=== PATIENT | male | born 1975 | race Caucasian/White ===

== ENCOUNTER 2025-02-14 15:31 | Inpatient (IN) | payer MEDICAID, OTHER ==
[2025-02-14] MEDS ORDERED: LORazepam 1 MG TAB PO PRN (17:12)
[2025-02-14] MEDS ORDERED: MAG HYDROX/AL HYDROX/SIMETH 355 ML BOTTLE PO PRN (17:12)
[2025-02-14] MEDS ORDERED: haloperidoL 5 MG TAB PO PRN (17:12)
[2025-02-14] MEDS ORDERED: MAGNESIUM HYDROXIDE 2,400 MG/30 ML CUP PO PRN (17:12)
[2025-02-14] MEDS ORDERED: HALOPERIDOL LACTATE 5 MG/ML 1 ML VIAL IM PRN (17:12)
[2025-02-14] MEDS ORDERED: LORazepam 2 MG/ML INJ IM PRN (17:12)
[2025-02-14] MEDS ORDERED: QUEtiapine 50 MG TAB PO PRN (17:14)
[2025-02-14 20:05] LABS: Glucose,Whole Blood 113 mg/dL (70-110)
--- NOTE | 2025-02-14 22:56 | P.CONS ---
History of Present Illness - Reason for Consult Consult date: 02/14/25 - History of Present Illness Patient is a 49-year-old male being seen for depression. Patient refused to be seen at this moment. Will attempt to see patient tomorrow. Elizabeth Rivera MD PGY-1 IM Dictation was produced using [employer] dictation software. please excuse any grammatical, word or spelling errors. patient refused evaluation , please reach out if patient has any medical concerns in the future Past Medical History Past Medical History: Diabetes Mellitus, Hyperlipidemia, Hypertension History of Any Multi-Drug Resistant Organisms: None Reported Past Surgical History: No Surgical Hx Reported Past Anesthesia/Blood Transfusion Reactions: No Reported Reaction Past Psychological History: Depression Smoking Status: Current every day smoker Past Alcohol Use History: Abuse, Daily Past Drug Use History: None Reported - Past Family History Father Family Medical History: No Reported History Medications and Allergies Home Medications Medication Instructions Recorded Confirmed Type Albuterol Sulfate [Proair 02/14/25 History Digihaler] Atorvastatin [Lipitor] 20 mg PO DAILY 02/14/25 02/14/25 History Fenofibrate Nanocrystallized 48 mg PO 02/14/25 History [Fenofibrate] Leflunomide [Arava] 20 mg PO DAILY 02/14/25 02/14/25 History Losartan [Cozaar] 25 mg PO DAILY 02/14/25 02/14/25 History Pantoprazole Sodium [Protonix] 20 tab PO DAILY 02/14/25 02/14/25 History Pregabalin [Lyrica] 75 mg PO TID 02/14/25 History busPIRone HCl [Buspar] 5 mg PO TID 02/14/25 02/14/25 History glipiZIDE 10 mg PO DAILY 02/14/25 02/14/25 History metFORMIN HCL 1,000 mg PO BID 02/14/25 02/14/25 History Allergies Allergy/AdvReac Type Severity Reaction Status Date / Time No Known Allergies Allergy Verified 02/14/25 17:11 Physical Exam Vitals: Vital Signs Temp Pulse Resp BP Pulse Ox 02/14/25 20:17 98 F 83 18 144/84 97 Intake and Output 02/14/25 02/14/25 02/14/25 06:59 14:59 22:59 Other: Weight 87.146 kg Results Labs: Abnormal Lab Results - Last 24 Hours (Table) 02/14/25 Range/Units 20:04 POC Glucose (mg/dL) 113 H (70-110) mg/dL
[2025-02-15 07:39] LABS: Glucose,Whole Blood 116 mg/dL (70-110)
[2025-02-15] MEDS: FOLIC ACID 1 MG TAB PO SCH (09:20)
[2025-02-15] MEDS: MULTIVITAMINS, THERA 1 EACH TAB PO SCH (09:20)
[2025-02-15] MEDS: THIAMINE 100 MG TAB PO SCH (09:20)
[2025-02-15] MEDS: NICOTINE 14MG/24HR PATCH TRANSDERM SCH (09:20)
[2025-02-15] MEDS: IBUPROFEN 600 MG TAB PO PRN (11:00)
--- NOTE | 2025-02-15 12:07 | XR ---
EXAMINATION TYPE: XR foot complete RT DATE OF EXAM: 02/15/2025 11:55 AM COMPARISON: None CLINICAL INDICATION: Male, 49 years old with history of R foot edema and pain; PHH, pain TECHNIQUE: XR foot complete RT examined in the AP, oblique, and lateral projections. FINDINGS: Soft tissue swelling present most pronounced along the dorsal aspect. No evidence of any acute osseou s pathology. Multifocal degeneration changes throughout the joints of the foot with osteophyte format ion and joint space narrowing. IMPRESSION: 1. Mild edema, No evidence of acute fracture. 2. Multifocal degeneration changes throughout the joints of the foot. [facility], , 02/15/2025 12:04 PM
[2025-02-15 12:09] LABS: Basophils # (A) 0.1 k/uL (0-0.2); Basophils % (A) 1 %; Eosinophils # (A) 0.1 k/uL (0-0.7); Eosinophils % (A) 1 %; HCT 49.4 % (39.0-53.0); HGB 15.9 gm/dL (13.0-17.5); Lymphocytes # (A) 1.9 k/uL (1.0-4.8); Lymphocytes % (A) 20 %; MCH 31.5 pg (25.0-35.0); MCHC 32.1 g/dL (31.0-37.0); Macrocytosis Slight; Mean Platelet Volume 7.7; Monocytes # (A) 0.4 k/uL (0-1.0); Monocytes % (A) 4 %; Neutrophils # (A) 7.1 k/uL (1.3-7.7); Neutrophils % (A) 74 %; Platelet Count 200 k/uL (150-450); RBC 5.04 m/uL (4.30-5.90); RDW 14.9 % (11.5-15.5); WBC 9.7 k/uL (3.8-10.6)
[2025-02-15 12:47] LABS: ALT 28 U/L (4-49); AST 31 U/L (17-59); African American GFR (CKD) 87 (>60 ml/min/1.73 sqM); Alkaline Phosphatase 90 U/L (38-126); Anion Gap 7 mmol/L; Blood Urea Nitrogen 15 mg/dL (9-20); Calcium 9.8 mg/dL (8.4-10.2); Carbon Dioxide 29 mmol/L (22-30); Chloride 99 mmol/L (98-107); Glucose 129 mg/dL (74-99); Non-African American GFR(CKD) 75 (>60 ml/min/1.73 sqM); Potassium 3.6 mmol/L (3.5-5.1); Sodium 135 mmol/L (137-145); Total Bilirubin 0.9 mg/dL (0.2-1.3); Total Protein 6.9 g/dL (6.3-8.2)
[2025-02-15 13:01] LABS: Glucose,Whole Blood 112 mg/dL (70-110)
[2025-02-15] MEDS: SERTRALINE 25 MG TAB PO STA (14:53)
[2025-02-15] MEDS: ACETAMINOPHEN TAB 325 MG TAB PO PRN (14:54)
--- NOTE | 2025-02-15 14:58 | P.HP ---
Psychiatric H&P - . H&P Date: 02/15/25 History & Physical: Allergies Allergy/AdvReac Type Severity Reaction Status Date / Time No Known Allergies Allergy Verified 02/14/25 17:11 Vital Signs Temp 96.8 F L 02/15/25 09:00 Pulse 91 02/15/25 09:00 Resp 18 02/14/25 20:17 BP 131/90 02/15/25 09:00 Pulse Ox 98 02/15/25 09:00 FiO2 Intake & Output 02/14/25 02/15/25 02/15/25 18:59 06:59 18:59 Weight 81 kg 87.146 kg Laboratory Last Values WBC 9.7 k/uL (3.8-10.6) 02/15/25 11:12 RBC 5.04 m/uL (4.30-5.90) 02/15/25 11:12 Hgb 15.9 gm/dL (13.0-17.5) 02/15/25 11:12 Hct 49.4 % (39.0-53.0) 02/15/25 11:12 MCV 98.0 fL (80.0-100.0) 02/15/25 11:12 MCH 31.5 pg (25.0-35.0) 02/15/25 11:12 MCHC 32.1 g/dL (31.0-37.0) 02/15/25 11:12 RDW 14.9 % (11.5-15.5) 02/15/25 11:12 Plt Count 200 k/uL (150-450) 02/15/25 11:12 MPV 7.7 02/15/25 11:12 Neutrophils % 74 % 02/15/25 11:12 Lymphocytes % 20 % 02/15/25 11:12 Monocytes % 4 % 02/15/25 11:12 Eosinophils % 1 % 02/15/25 11:12 Basophils % 1 % 02/15/25 11:12 Neutrophils # 7.1 k/uL (1.3-7.7) 02/15/25 11:12 Lymphocytes # 1.9 k/uL (1.0-4.8) 02/15/25 11:12 Monocytes # 0.4 k/uL (0-1.0) 02/15/25 11:12 Eosinophils # 0.1 k/uL (0-0.7) 02/15/25 11:12 Basophils # 0.1 k/uL (0-0.2) 02/15/25 11:12 Macrocytosis Slight 02/15/25 11:12 Sodium 135 mmol/L (137-145) L 02/15/25 11:12 Potassium 3.6 mmol/L (3.5-5.1) 02/15/25 11:12 Chloride 99 mmol/L (98-107) 02/15/25 11:12 Carbon Dioxide 29 mmol/L (22-30) 02/15/25 11:12 Anion Gap 7 mmol/L 02/15/25 11:12 BUN 15 mg/dL (9-20) 02/15/25 11:12 Creatinine 1.13 mg/dL (0.66-1.25) 02/15/25 11:12 Est GFR (CKD-EPI)AfAm 87 (>60 ml/min/1.73 sqM) 02/15/25 11:12 Est GFR (CKD-EPI)NonAf 75 (>60 ml/min/1.73 sqM) 02/15/25 11:12 Glucose 129 mg/dL (74-99) H 02/15/25 11:12 POC Glucose (mg/dL) 112 mg/dL (70-110) H 02/15/25 13:00 POC Glu Land Lease Information Clerk ID Ha Shirley 02/15/25 13:00 Calcium 9.8 mg/dL (8.4-10.2) 02/15/25 11:12 Total Bilirubin 0.9 mg/dL (0.2-1.3) 02/15/25 11:12 AST 31 U/L (17-59) 02/15/25 11:12 ALT 28 U/L (4-49) 02/15/25 11:12 Alkaline Phosphatase 90 U/L (38-126) 02/15/25 11:12 Total Protein 6.9 g/dL (6.3-8.2) 02/15/25 11:12 Albumin 4.0 g/dL (3.5-5.0) 02/15/25 11:12 02/15/25 14:40 IDENTIFYING DATA: Patient is a 49-year-old male, currently homeless, he is he has 1 daughter, no income HPI: Patient presented to the hospital as a transfer from [facility]. According to EPS note "pt is transfer from [facility]. pt reportedly arrived to ER intoxicated and reported SI. pt's uncle had passed recently and pt became homeless. pt reports feelings of helplessness and hopelessness and minimal to no supports. pt has not been compliant with medications." Patient was seen today agreeable to speak to video games storywriter in the office. Patient was fairly constricted in his affect, appeared to be depressed, very poor eye contact appear to be di sheveled. States that he has been struggling with homelessness, claims that he is tired of the cold feeling "dirty" and always being outside. He states that he is been homeless for about 2 years now. Claims that he is to be able to stay with his uncle on and off however his uncle and he is unable to do that anymore. States that he has been feeling more depressed lately having suicidal thoughts of wanting to hang himself, however now is only having suicidal thoughts no specific plan. Claims that he is still having those thoughts at this time, admits to having anxiety as well. Denies any homicidal ideations. Claims that his sleep has been poor appetite has been fair. At this time patient denies any auditory or visual hallucinations. Patient denies any flight of ideas racing thoughts and increased in goal directed behavior. Patient admits to using alcohol drinking daily, claims that he has only been drinking for the past couple of weeks. States that his last drink was about 4 days ago denies any history of withdrawal symptoms or seizures or delirium tremens. Also claims that he smokes cigarettes denies any other recreational drug use. PAST PSYCHIATRIC HISTORY: Patient has a history of depression anxiety. Patient denies being on any psychiatric medications. He claims that he was previously admitted to [facility] several years ago. Patient denies any psychiatric outpatient follow-up. Claims that he did have a overdose suicide attempt and also attempted to hang himself years ago. PMH: as per ER note ALLERGIES: as per EMR CHEMICAL DEPENDENCY HISTORY: as per HPI FAMILY PSYCHIATRIC/SUBSTANCE USE HISTORY: Denies SOCIAL HISTORY: Patient was born and raised in [place]. Claims that currently he resides in [place] in [facility]. States that he completed high school, claims that he did go to custodial about 3 years ago for a DUI. Claims that he is he has 1 daughter he is currently homeless he has no income. MENTAL STATUS EXAM: General Appearance: Patient appears to be tall, disheveled hair, poor eye contact stated age is alert, directable, and attempts to cooperate. Patient appears to have poor hygiene and grooming. Behavior: Patient is seated without any agitated behavior. Poor eye contact, fairly withdrawn Speech: Patient's speech is fluent and nonpressured. Soft tone, monotone Mood/Affect: Patient reports their mood is depressed chest, affect is congruent and constricted. Suicidality/Homicidality: Patient denies having any homicidal ideation intent or plan. Admitting to suicidal thoughts, no specific plan at this time Perceptions: Patient denies any visual hallucinations and denies any auditory hallucinations Though content/process: There is no evidence of any delusional thought content and thought process is linear and goal-directed. Fairly concrete Memory and concentration: AOX3, grossly intact for the purposes of this session. Can spell "WORLD" backwards Judgment and insight: Poor STRENGTHS/WEAKNESSES: strength is that patient is resilient. Weakness is that patient has poor judgment and is impulsive and is currently homeless INTELLECT: Average IMPRESSIONS: Suicidal ideations Depressive disorder unspecified Alcohol use disorder Nicotine dependence Homelessness PLAN: -Patient is admitted under voluntary status to MHU for stabilization of psychiatric symptoms and safety. Patient has signed adult voluntary form and has signed medication consent and is placed in patient's chart. -Medications : Zoloft 25 mg daily for mood/anxiety, plan to increase tomorrow to 50 mg. Seroquel 50 mg nightly for mood stabilization/sleep -Ativan and Haldol PRN for agitation/aggression -Started thiamine, MVM for etoh use -[facility] protocol with Ativan PRN for ETOH withdrawal. -Patient was counselled on substance abuse and desired to cut back on use. Will offer patient subtance use rehab -Patient was informed of the risks, benefits and side effects of the medications and patient verbally consented to taking the medications. Patient signed med consent form and was placed in chart. Patient was offered medication information and declined it -Internal Medicine consult to perform medical evaluation and physical. -NRT -nicotine patch -SW on board for discharge planning. Encourage patient to participate in groups to work on coping skills.
[2025-02-15 16:21] LABS: Chol/HDL Ratio 3.25 Ratio; HDL Cholesterol 55.7 mg/dL (40.00-60.00)
[2025-02-15] MEDS: predniSONE 20 MG TAB PO SCH (17:19)
[2025-02-15 17:52] LABS: Glucose,Whole Blood 135 mg/dL (70-110)
[2025-02-15 19:38] LABS: Glucose,Whole Blood 187 mg/dL (70-110)
[2025-02-15] MEDS: QUEtiapine 50 MG TAB PO SCH (20:46)
[2025-02-15] MEDS: LORazepam 1 MG TAB PO PRN (20:48)
[2025-02-16 07:59] LABS: Glucose,Whole Blood 188 mg/dL (70-110)
[2025-02-16] MEDS: SERTRALINE 50 MG TAB PO SCH (08:50)
--- NOTE | 2025-02-16 11:22 | P.PN ---
Progress Note - Text Progress Note Date: 02/16/25 Interval history: Patient was seen today laying in bed. Claims that he is not feeling well today, claims that his stomach is hurting a bit, was reporting chronic pain in his legs. States that he did not sleep much last night. Believes that he is not tolerating the Zoloft pretty well. Was agreeable to take Cymbalta instead. Claims that he is still having anxiety, endorsing depression. Continues to state that he is having suicidal thoughts however no specific plan. Denies any homicidal ideations denies any auditory or visual hallucinations. Continues to endorse hopelessness. Claims that he tried to eat a little bit this morning. MENTAL STATUS EXAM: General Appearance: Patient appears to be tall, disheveled hair, poor eye contact stated age is alert, directable, and attempts to cooperate. Patient appears to have poor hygiene and grooming. Behavior: Patient is laying in bed without any agitated behavior. Poor eye contact, fairly withdrawn Speech: Patient's speech is fluent and nonpressured. Soft tone, monotone Mood/Affect: Patient reports their mood is depressed, affect is congruent and constricted. Suicidality/Homicidality: Patient denies having any homicidal ideation intent or plan. Admitting to suicidal thoughts, no specific plan at this time Perceptions: Patient denies any visual hallucinations and denies any auditory hallucinations Though content/process: There is no evidence of any delusional thought content. fairly concrete. Somatically preoccupied Memory and concentration: AOX3, grossly intact for the purposes of this session Judgment and insight: Poor IMPRESSIONS: Suicidal ideations Depressive disorder unspecified Alcohol use disorder Nicotine dependence Homelessness PLAN: -Patient is admitted under voluntary status to MHU for stabilization of psychiatric symptoms and safety. Patient has signed adult voluntary form and has signed medication consent and is placed in patient's chart. -Medications : discontinue Zoloft and replace with Cymbalta 30 mg daily for mood/anxiety, increase Seroquel 75 mg nightly for mood stabilization/sleep -Ativan and Haldol PRN for agitation/aggression -thiamine, MVM for etoh use -[facility] protocol with Ativan PRN for ETOH withdrawal. Librium scheduled with taper, last dose tomorrow afternoon. -NRT -nicotine patch -SW on board for discharge planning. Encourage patient to participate in groups to work on coping skills. Will attempt to offer patient rehab when he is more stable and improving.
[2025-02-16 12:33] LABS: Glucose,Whole Blood 216 mg/dL (70-110)
[2025-02-16 17:41] LABS: Glucose,Whole Blood 313 mg/dL (70-110)
[2025-02-16] MEDS ORDERED: DEXTROSE 50% SYRINGE 50 ML IVP PRN ×2 (18:00)
[2025-02-16] MEDS: INSULIN LISPRO (HumaLOG) 100 UNIT/ML 10 mL VL SQ SCH (18:18)
[2025-02-16 20:06] LABS: Glucose,Whole Blood 307 mg/dL (70-110)
[2025-02-16] MEDS ORDERED: INSULIN LISPRO (HumaLOG) 100 UNIT/ML 10 mL VL SQ SCH (21:00)
[2025-02-16] MEDS: QUEtiapine 25 MG TAB PO SCH (22:16)
[2025-02-16] MEDS: LORazepam 1 MG TAB PO PRN (22:21)
[2025-02-17 07:54] LABS: Glucose,Whole Blood 137 mg/dL (70-110)
[2025-02-17] MEDS: DULoxetine HCL 30 MG CAPSULE.DR PO SCH ×2 (09:13→22:08)
--- NOTE | 2025-02-17 09:51 | P.PN ---
Progress Note - Text Progress Note Date: 02/17/25 Interval history: Patient was seen today laying in bed. Patient was agreeable to speak to publications writer in the office today. Claims that he continues to feel depressed, poor eye contact disheveled appearance. Mainly keeping himself in his room. Claims that he slept better last night however did take an Ativan last night. He is claiming that he is not having much withdrawal symptoms at this time Librium with discontinued today. Continues to have chronic pain in his legs. Has been tolerating medications fairly well no side effects. Has been eating fairly. Continues to endorse severe depression hopelessness. Claims that he is still having anxiety. Continues to state that he is having suicidal thoughts however no specific plan. Denies any homicidal ideations denies any auditory or visual hallucinations. MENTAL STATUS EXAM: General Appearance: Patient appears to be tall, disheveled hair, poor eye contact stated age is alert, directable, and attempts to cooperate. Patient appears to have poor hygiene and grooming. Behavior: Patient is laying in bed without any agitated behavior. Poor eye contact, fairly withdrawn Speech: Patient's speech is fluent and nonpressured. Soft tone, monotone Mood/Affect: Patient reports their mood is depressed and anxious, affect is congruent and constricted. Suicidality/Homicidality: Patient denies having any homicidal ideation intent or plan. Admitting to suicidal thoughts, no specific plan at this time Perceptions: Patient denies any visual hallucinations and denies any auditory hallucinations Though content/process: There is no evidence of any delusional thought content. fairly concrete. Memory and concentration: AOX3, grossly intact for the purposes of this session Judgment and insight: Poor IMPRESSIONS: Suicidal ideations Depressive disorder unspecified Alcohol use disorder Nicotine dependence Homelessness PLAN: -Patient is admitted under voluntary status to MHU for stabilization of psychiatric symptoms and safety. Patient has signed adult voluntary form and has signed medication consent and is placed in patient's chart. -Medications : Increase Cymbalta 30 mg bid for mood/anxiety, increase Seroquel 100 mg nightly for mood stabilization/sleep -Ativan and Haldol PRN for agitation/aggression -thiamine, MVM for etoh use -[facility] protocol with Ativan PRN for ETOH withdrawal. Librium scheduled with taper, last dose today. -NRT -nicotine patch -SW on board for discharge planning. Encourage patient to participate in groups to work on coping skills. Will attempt to offer patient rehab when he is more stable and improving.
[2025-02-17 12:34] LABS: Glucose,Whole Blood 192 mg/dL (70-110)
[2025-02-17 17:51] LABS: Glucose,Whole Blood 313 mg/dL (70-110)
[2025-02-17 20:05] LABS: Glucose,Whole Blood 381 mg/dL (70-110)
[2025-02-17] MEDS: QUEtiapine 100 MG TAB PO SCH (22:08)
[2025-02-17] MEDS: INSULIN LISPRO (HumaLOG) 100 UNIT/ML 10 mL VL SQ SCH (23:55)
[2025-02-18 07:40] LABS: Glucose,Whole Blood 183 mg/dL (70-110)
--- NOTE | 2025-02-18 12:12 | P.PN ---
Progress Note - Text Progress Note Date: 02/18/25 Interval history: Patient was seen today sitting in the lounge talking with other patients. Linda licona was agreeable to speak to verse writer today. Claims that he continues to feel depressed, poor eye contact and continues to have disheveled appearance. Patient claims that he is still feeling some anxiety, is claiming that the medications are helping a bit. He continues to be fairly concrete, withdrawn. Poverty of content. Continues to state that he has thoughts of harming himself however is not stating what he would do when released. Claims that he did sleep throughout the night fairly well. Has been eating well. Denies any homicidal ideations denies any auditory or visual hallucinations. MENTAL STATUS EXAM: General Appearance: Patient appears to be tall, disheveled hair, poor eye contact stated age is alert, directable, and attempts to cooperate. Patient appears to have poor hygiene and grooming. Behavior: Patient is laying in bed without any agitated behavior. Poor eye contact, fairly withdrawn, improving mildly Speech: Patient's speech is fluent and nonpressured. Soft tone, monotone Mood/Affect: Patient reports their mood is depressed and anxious, improving mildly, affect is congruent and constricted. Suicidality/Homicidality: Patient denies having any homicidal ideation intent or plan. Admitting to suicidal thoughts, no specific plan at this time Perceptions: Patient denies any visual hallucinations and denies any auditory hallucinations Though content/process: There is no evidence of any delusional thought content. fairly concrete. Memory and concentration: AOX3, grossly intact for the purposes of this session Judgment and insight: Poor IMPRESSIONS: Suicidal ideations Depressive disorder unspecified Alcohol use disorder Nicotine dependence Homelessness PLAN: -Patient is admitted under voluntary status to MHU for stabilization of psychiatric symptoms and safety. Patient has signed adult voluntary form and has signed medication consent and is placed in patient's chart. -Medications : Increase Cymbalta 30 mg hs + 60 mg daily for mood/anxiety, Seroquel 100 mg nightly for mood stabilization/sleep -Ativan and Haldol PRN for agitation/aggression -thiamine, MVM for etoh use -NRT -nicotine patch -SW on board for discharge planning. Encourage patient to participate in groups to work on coping skills. Will attempt to offer patient rehab when he is more stable and improving. hopeful for discharge next week once patient improves psychiatrically.
[2025-02-18 12:48] LABS: Glucose,Whole Blood 200 mg/dL (70-110)
[2025-02-18 17:39] LABS: Glucose,Whole Blood 373 mg/dL (70-110)
[2025-02-18] MEDS: FENOFIBRATE 54 MG TAB PO SCH (18:25)
[2025-02-18] MEDS: LOSARTAN 25 MG TAB PO SCH (18:25)
[2025-02-18] MEDS: glipiZIDE 5 MG TAB PO SCH (18:25)
[2025-02-18] MEDS: metFORMIN 500 MG TAB PO SCH (18:26)
[2025-02-18 19:50] LABS: Glucose,Whole Blood 344 mg/dL (70-110)
[2025-02-18] MEDS: DULoxetine HCL 30 MG CAPSULE.DR PO SCH (20:20)
[2025-02-19 07:58] LABS: Glucose,Whole Blood 104 mg/dL (70-110)
[2025-02-19] MEDS: PANTOPRAZOLE 40 MG TABLET PO SCH (09:48)
[2025-02-19] MEDS: ATORVASTATIN 20 MG TAB PO SCH (09:48)
[2025-02-19] MEDS: DULoxetine HCL 60 MG CAPSULE.DR PO SCH (09:48)
[2025-02-19] MEDS: LEFLUNOMIDE 20 MG TAB PO SCH (09:49)
[2025-02-19 12:56] LABS: Glucose,Whole Blood 138 mg/dL (70-110)
--- NOTE | 2025-02-19 15:40 | P.PN ---
Progress Note - Text Progress Note Date: 02/19/25 Interval history: Patient was seen bedside and was directable and agreeable to speak with parts data writer. He has a downward gaze and states that his mood is "fine ". Patient endorses suicidal ideation with a plan to hang himself and states being in the hospital is what is preventing him from carrying out the plan. He presents with hopelessness and helplessness. He states that he experiences social isolation which makes him feel like "I am nothing ". He reports eating well and states that he likes to lay in bed otherwise. He does not want to engage in groups although encouraged to do so. Discussed behavioral activation. He reports sleeping well. At this time patient denies any homicidal ideations intent or plan. Denies any Auditory or visual hallucinations. Patient denies any side effects from the medications and has been compliant with meds. Mental status exam: General Appearance: Patient appears to be tall, disheveled hair, poor eye contact stated age is alert, directable, and attempts to cooperate. Patient appears to have poor hygiene and grooming. Malodorous Behavior: Patient is laying in bed without any agitated behavior. Poor eye contact, fairly withdrawn, improving mildly Speech: Patient's speech is fluent and nonpressured. Soft tone, monotone Mood/Affect: Patient reports their mood is depressed and anxious, affect is congruent Suicidality/Homicidality: Patient denies having any homicidal ideation intent or plan. Suicidal ideation with a plan Perceptions: Patient denies any visual hallucinations and denies any auditory hallucinations Though content/process: There is no evidence of any delusional thought content. fairly concrete. Memory and concentration: AOX3, grossly intact for the purposes of this session Judgment and insight: Poor Assessment/Plan: Continue with current diagnosis. Patient continues to meet criteria for inpatient psychiatric admission for symptom stabilization and safety.[Patient will be maintained on current psychotropic medication regimen.] Monitor for medication compliance and for any psychotropic medication side effects. Will continue to monitor ongoing response to treatment. Encouraged participation in milieu.
[2025-02-19 17:19] LABS: Glucose,Whole Blood 274 mg/dL (70-110)
[2025-02-19 20:27] LABS: Glucose,Whole Blood 296 mg/dL (70-110)
[2025-02-20 07:37] LABS: Glucose,Whole Blood 128 mg/dL (70-110)
[2025-02-20 12:50] LABS: Glucose,Whole Blood 169 mg/dL (70-110)
--- NOTE | 2025-02-20 15:00 | P.PN ---
Progress Note - Text Progress Note Date: 02/20/25 Interval history: Patient was seen bedside and was directable and agreeable to speak with film writer. He has a downward gaze and states that his mood is "alright". Patient endorses suicidal ideation with a plan to hang himself and states "that's what I plan to be doing when I get out of here ". He presents with hopelessness and helplessness. He continues to state "I am nothing. I got nothing". He reports eating well and states that he likes to lay in bed otherwise. He does not want to engage in groups although encouraged to do so. Discussed behavioral activation. He reports sleeping well. He is agreeable with Cymbalta being increased. At this time patient denies any homicidal ideations intent or plan. Denies any Auditory or visual hallucinations. Patient denies any side effects from the medications and has been compliant with meds. Mental status exam: General Appearance: Patient appears to be tall, disheveled hair, poor eye contact stated age is alert, directable, and attempts to cooperate. Patient appears to have poor hygiene and grooming. Malodorous Behavior: Patient is laying in bed without any agitated behavior. Poor eye contact, fairly withdrawn, improving mildly Speech: Patient's speech is fluent and nonpressured. Soft tone, monotone Mood/Affect: Patient reports their mood is depressed, affect is congruent Suicidality/Homicidality: Patient denies having any homicidal ideation intent or plan. Suicidal ideation with a plan Perceptions: Patient denies any visual hallucinations and denies any auditory hallucinations Though content/process: There is no evidence of any delusional thought content. fairly concrete. Memory and concentration: AOX3, grossly intact for the purposes of this session Judgment and insight: Poor Assessment/Plan: Continue with current diagnosis. Patient continues to meet criteria for inpatient psychiatric admission for symptom stabilization and safety. Increase Cymbalta to 60 mg twice daily. [Patient will be maintained on other psychotropic medication regimen.] Monitor for medication compliance and for any psychotropic medication side effects. Will continue to monitor ongoing response to treatment. Encouraged participation in milieu.
[2025-02-20 17:52] LABS: Glucose,Whole Blood 263 mg/dL (70-110)
[2025-02-20 21:07] LABS: Glucose,Whole Blood 329 mg/dL (70-110)
[2025-02-20] MEDS: DULoxetine HCL 60 MG CAPSULE.DR PO SCH (21:10)
[2025-02-21 07:47] LABS: Glucose,Whole Blood 130 mg/dL (70-110)
--- NOTE | 2025-02-21 11:44 | P.PN ---
Progress Note - Text Progress Note Date: 02/21/25 Interval history: Patient was seen today laying in his bed. Patient was agreeable to speak to tia crabtree today. Patient continues to state that he feels depressed at this time. He has a mild improvement in his hygiene and grooming. Claims that he did go to some groups over the weekend and played [employer]. He states that he continues to have thoughts of harming himself "when I get out". He has no immediate plans to harm himself here in the hospital. Continues to endorse hopelessness, was fa irly vague at times and guarded. Claims that he is eating fairly. Claims that he is not sleeping well at nighttime. Continues to endorse depression and anxiety. Denies any homicidal ideations denies any auditory or visual hallucinations. MENTAL STATUS EXAM: General Appearance: Patient appears to be tall, disheveled hair, poor eye contact stated age is alert, directable, and attempts to cooperate. Patient appears to have mildly improving hygiene and grooming. Behavior: Patient is laying in bed without any agitated behavior. Mildly improving eye contact, fairly withdrawn, improving mildly Speech: Patient's speech is fluent and nonpressured. Soft tone, monotone, mildly improving Mood/Affect: Patient reports their mood is depressed and anxious, improving mildly, affect is congruent and constricted. Suicidality/Homicidality: Patient denies having any homicidal ideation intent or plan. Admitting to suicidal thoughts, no specific plan at this time Perceptions: Patient denies any visual hallucinations and denies any auditory hallucinations Though content/process: There is no evidence of any delusional thought content. fairly concrete. Evasive Memory and concentration: AOX3, grossly intact for the purposes of this session Judgment and insight: Poor IMPRESSIONS: Suicidal ideations Depressive disorder unspecified Alcohol use disorder Nicotine dependence Homelessness PLAN: -Patient is admitted under voluntary status to [facility] for stabilization of psychiatric symptoms and safety. Patient has signed adult voluntary form and has signed medication consent and is placed in patient's chart. -Medications : Cymbalta 60 mg bid for mood/anxiety, increase Seroquel 150 mg nightly for mood stabilization/sleep, start lithium 150 mg daily for mood adjunct/suicidal thoughts -Ativan and Haldol PRN for agitation/aggression -thiamine, MVM for etoh use -NRT -nicotine patch -SW on board for discharge planning. Encourage patient to participate in groups to work on coping skills. Will attempt to offer patient rehab when he is more stable and improving. hopeful for discharge this week if patient is psychiatrically improving.
[2025-02-21] MEDS: LITHIUM CARBONATE 150 MG CAP PO SCH (13:06)
[2025-02-21 13:08] LABS: Glucose,Whole Blood 162 mg/dL (70-110)
[2025-02-21 17:52] LABS: Glucose,Whole Blood 114 mg/dL (70-110)
[2025-02-21 20:00] LABS: Glucose,Whole Blood 98 mg/dL (70-110)
[2025-02-21] MEDS: QUEtiapine 50 MG TAB PO SCH (21:39)
[2025-02-22 07:41] LABS: Glucose,Whole Blood 88 mg/dL (70-110)
--- NOTE | 2025-02-22 11:17 | P.PN ---
Progress Note - Text Progress Note Date: 02/22/25 Interval history: Patient was seen today laying in his bed. Patient was agreeable to speak to tia crabtree today. Patient claims that he is still feeling a bit depressed, states that "not much is changed since yesterday". He was less focused on suicidal thoughts today, claims that those are improving. Denied any intent or plan. Eye contact has been improving mildly, continues to be disheveled at times. Continues to state that he is sleeping on and off at nighttime, mainly is complaining about sounds in the hallway and people opening his door. States that he is trying to go to some groups however is mostly noticed to be in his room. Claims that he is eating fairly. Continues to endorse depression and anxiety. Denies any homicidal ideations denies any auditory or visual hallucinations. MENTAL STATUS EXAM: General Appearance: Patient appears to be tall, disheveled hair, poor eye c ontact stated age is alert, directable, and attempts to cooperate. Patient appears to have mildly improving hygiene and grooming. Behavior: Patient is laying in bed without any agitated behavior. Mildly improving eye contact, fairly withdrawn, improving mildly Speech: Patient's speech is fluent and nonpressured. Soft tone, monotone, mildly improving Mood/Affect: Patient reports their mood is depressed, improving mildly, affect is congruent and constricted. Suicidality/Homicidality: Patient denies having any homicidal ideation intent or plan. Admitting to suicidal thoughts, no specific plan at this time Perceptions: Patient denies any visual hallucinations and denies any auditory hallucinations Though content/process: There is no evidence of any delusional thought content. fairly concrete. Memory and concentration: AOX3, grossly intact for the purposes of this session Judgment and insight: Poor, improving mild IMPRESSIONS: Suicidal ideations Depressive disorder unspecified Alcohol use disorder Nicotine dependence Homelessness PLAN: -Patient is admitted under voluntary status to [facility] for stabilization of psychiatric symptoms and safety. Patient has signed adult voluntary form and has signed medication consent and is placed in patient's chart. -Medications : Cymbalta 60 mg bid for mood/anxiety, Seroquel 150 mg nightly for mood stabilization/sleep, increase lithium 300 mg daily for mood adjunct/suicidal thoughts -Ativan and Haldol PRN for agitation/aggression -thiamine, MVM for etoh use -NRT -nicotine patch -SW on board for discharge planning. Encourage patient to participate in groups to work on coping skills. Will attempt to offer patient rehab when he is more stable and improving. hopeful for discharge this week if patient is psychiatrically improving.
[2025-02-22] MEDS: LITHIUM CARBONATE 150 MG CAP PO STA (11:24)
[2025-02-22 12:35] LABS: Glucose,Whole Blood 78 mg/dL (70-110)
[2025-02-22 17:41] LABS: Glucose,Whole Blood 70 mg/dL (70-110)
[2025-02-22 19:56] LABS: Glucose,Whole Blood 119 mg/dL (70-110)
[2025-02-23 07:59] LABS: Glucose,Whole Blood 101 mg/dL (70-110)
[2025-02-23] MEDS: LITHIUM CARBONATE 300 MG CAP PO SCH (09:19)
--- NOTE | 2025-02-23 12:03 | P.PN ---
Progress Note - Text Progress Note Date: 02/23/25 Interval history: Patient was seen today laying in his bed. Patient claims that he is feeling a bit better today, mild improvement in his eye contact. Mild improvement in hygiene and grooming today. Is still endorsing some mild depression at this time, claims that he is less focused on suicidal thoughts, did not have any today. Has been going to going to some groups, continues to describe some anhedonia. Claims that he has been sleeping on and off at nighttime, continues to mainly keep to himself on the unit. Claims that he is eating fairly. Continues to endorse depression and anxiety. Denies any homicidal ideations denies any auditory or visual hallucinations. MENTAL STATUS EXAM: General Appearance: Patient appears to be tall, disheveled hair, poor eye contact stated age is alert, directable, and attempts to cooperate. Patient appears to have mildly improving hygiene and grooming. Behavior: Patient is laying in bed without any agitated behavior. Mildly improving eye contact, fairly withdrawn, improving mildly Speech: Patient's speech is fluent and nonpressured. Soft tone, monotone, mildly improving Mood/Affect: Patient reports their mood is depressed, improving mildly, affect is congruent and constricted. Improving mild Suicidality/Homicidality: Patient denies having any homicidal ideation intent or plan. Denies having an suicidal thoughts, no specific plan at this time Perceptions: Patient denies any visual hallucinations and denies any auditory hallucinations Though content/process: There is no evidence of any delusional thought content. fairly concrete. Memory and concentration: AOX3, grossly intact for the purposes of this session Judgment and insight: Poor, improving mild IMPRESSIONS: Suicidal ideations Depressive disorder unspecified Alcohol use disorder Nicotine dependence Homelessness PLAN: -Patient is admitted under voluntary status to [facility] for stabilization of psychiatric symptoms and safety. Patient has signed adult voluntary form and has signed medication consent and is placed in patient's chart. -Medications : Cymbalta 60 mg bid for mood/anxiety, increase Seroquel 200 mg nightly for mood stabilization/sleep, lithium 300 mg daily for mood adjunct/suicidal thoughts -Ativan and Haldol PRN for agitation/aggression -thiamine, MVM for etoh use -NRT -nicotine patch -SW on board for discharge planning. Encourage patient to participate in groups to work on coping skills. Patient is refusing rehab at this time. Hopeful for discharge friday if patient is psychiatrically improving.
[2025-02-23 13:26] LABS: Glucose,Whole Blood 103 mg/dL (70-110)
[2025-02-23 17:53] LABS: Glucose,Whole Blood 75 mg/dL (70-110)
[2025-02-23 20:11] LABS: Glucose,Whole Blood 133 mg/dL (70-110)
[2025-02-23] MEDS: QUEtiapine 200 MG TAB PO SCH (22:14)
[2025-02-24 07:50] LABS: Glucose,Whole Blood 105 mg/dL (70-110)
--- NOTE | 2025-02-24 10:31 | P.PN ---
Progress Note - Text Progress Note Date: 02/24/25 Interval history: Patient was seen today laying in his bed. Patient claims that he is feeling " about the same" mild improvement in his eye contact and also a bit more cooperative today with writer producer. Affect seems to be improving since yesterday. Claims that he is not feeling suicidal at this time, is endorsing more future orientation. Has been going to going to some groups, continues to describe some anhedonia, especially in the morning. Claims that he has been sleeping on and off at nighttime, the Seroquel increased only helped mildly. Continues to mainly keep to himself on the unit. Has been going to some groups. Claims that he is eating fairly. Denies any homicidal ideations denies any auditory or visual hallucinations. MENTAL STATUS EXAM: General Appearance: Patient appears to be tall, disheveled hair, improved eye contact stated age is alert, directable, and attempts to cooperate. Patient appears to have mildly improving hygiene and grooming. Behavior: Patient is laying in bed without any agitated behavior. Mildly improving eye contact, fairly withdrawn, improving mildly Speech: Patient's speech is fluent and nonpressured. Soft tone, mildly improving Mood/Affect: Patient reports their mood is improving mildly, affect is congruent and constricted. Improving mildly Suicidality/Homicidality: Patient denies having any homicidal ideation intent or plan. Denies having an suicidal thoughts, no specific plan at this time Perceptions: Patient denies any visual hallucinations and denies any auditory hallucinations Though content/process: There is no evidence of any delusional thought content. fairly concrete. More future oriented today Memory and concentration: AOX3, grossly intact for the purposes of this session Judgment and insight: Chronically poor, improving mildly IMPRESSIONS: Suicidal ideations Depressive disorder unspecified Alcohol use disorder Nicotine dependence Homelessness PLAN: -Patient is admitted under voluntary status to [facility] for stabilization of psychiatric symptoms and safety. Patient has signed adult voluntary form and has signed medication consent and is placed in patient's chart. -Medications : Cymbalta 60 mg bid for mood/anxiety, Seroquel 200 mg nightly for mood stabilization/sleep, increase lithium 450 mg daily for mood adjunct/suicidal thoughts. it appears that patient does have chronic suicidal thoughts, this is however improving mildly. Added melatonin 10 mg nightly for sleep -Ativan and Haldol PRN for agitation/aggression -thiamine, MVM for etoh use -NRT -nicotine patch -SW on board for discharge planning. Encourage patient to participate in groups to work on coping skills. Patient is refusing rehab at this time. Hopeful for discharge friday if patient is psychiatrically improving. Patient is currently homeless will be referred to a homeless correction in [facility].
[2025-02-24] MEDS: LITHIUM CARBONATE 150 MG CAP PO STA (11:52)
[2025-02-24 12:36] LABS: Glucose,Whole Blood 144 mg/dL (70-110)
[2025-02-24 17:32] LABS: Glucose,Whole Blood 133 mg/dL (70-110)
[2025-02-24 19:54] LABS: Glucose,Whole Blood 134 mg/dL (70-110)
[2025-02-24] MEDS: MELATONIN 5 MG TABLET PO SCH (20:41)
[2025-02-24 21:49] VITALS: RESP 16
[2025-02-25 07:54] LABS: Glucose,Whole Blood 113 mg/dL (70-110)
[2025-02-25 08:48] VITALS: BP 84/57; PULSE 102; TEMP 98.7
[2025-02-25] MEDS: LITHIUM CARBONATE 150 MG CAP PO SCH (08:49)
--- NOTE | 2025-02-25 11:24 | P.DS ---
Providers Date of admission: 02/14/25 19:27 Expected date of discharge: 02/25/25 Attending physician: Segundo Pride MD Consults: 02/14/25 17:12 Consult Physician Routine Consulting Provider: Indra Physician Consult Reason/Comments: H&P and medical Do you want consulting provider notified?: Yes Primary care physician: Stated None - Discharge Diagnosis(es) (1) Suicidal ideations Current Visit: Yes Status: Acute Priority: High (2) Depressive disorder Current Visit: Yes Status: Acute Priority: High (3) Alcohol use disorder Current Visit: Yes Status: Acute Priority: High (4) Nicotine dependence Current Visit: Yes Status: Acute Priority: Low (5) Homelessness Current Visit: Yes Status: Acute Priority: Medium Hospital Course: Admission HPI: Admission note was completed by appeals writer "patient is a 49-year-old male, currently homeless, he is he has 1 daughter, no income. Patient presented to the hospital as a transfer from [facility]. According to EPS note "pt is transfer from [facility]. pt reportedly arrived to ER intoxicated and reported SI. pt's uncle had passed recently and pt became homeless. pt reports feelings of helplessness and hopelessness and minimal to no supports. pt has not been compliant with medications." Patient was seen today agreeable to speak to appeals writer in the office. Patient was fairly constricted in his affect, appeared to be depressed, very poor eye contact appear to be disheveled. States that he has been struggling with homelessness, claims that he is tired of the cold feeling "dirty" and always being outside. He states that he is been homeless for about 2 years now. Claims that he is to be able to stay with his uncle on and off however his uncle and he is unable to do that anymore. States that he has been feeling more depressed lately having suicidal thoughts of wanting to hang himself, however now is only having suicidal thoughts no specific plan. Claims that he is still having those thoughts at this time, admits to having anxiety as well. Denies any homicidal ideations. Claims that his sleep has been poor appetite has been fair. At this time patient denies any auditory or visual hallucinations. Patient denies any flight of ideas racing thoughts and increased in goal directed behavior. Patient admits to using alcohol drinking daily, claims that he has only been drinking for the past couple of weeks. States that his last drink was about 4 days ago denies any history of withdrawal symptoms or seizures or delirium tremens. Also claims that he smokes cigarettes denies any other recreational drug use." Hospital course: Upon admission to the unit patient was directable and agreeable to commence treatment and signed adult voluntary form. Patient was initially withdrawn, depressed endorsing suicidal thoughts however with time and treatment patient got along well with other patients on the unit and followed unit protocol. Patient was at times manipulative, endorsing chronic suicidal thoughts for years now, was attempting to delay or avoid discharge due to being homeless not having a place to go. Patient was compliant with the medications and denied any side effects throughout hospital course. Patient was started on Cymbalta increased to dose of 60 mg twice daily for mood/anxiety, Seroquel 200 mg nightly for mood stabilization/sleep/anxiety, Lithobid 450 mg daily for mood adjunct/suicidal thoughts, melatonin 10 mg nightly for sleep. Patient spoke of his stressors however did not participate much in group/activity therapy and mainly kept to themselves during hospitalization. Patient was also seen by medical team for history and physical exam. Throughout the course of the hospitalization patient gradually improved with regards to mood, anxiety, suicidal thoughts, sleep and returned back to their baseline level of functioning. Patient is at this time denying any suicidal thoughts however claims that he does have chronic suicidal ideations which are mainly related to his homeless situation. On the day of discharge patient denied any suicidal or homicidal ideations intent or plan denied any auditory or visual hallucinations. Patient endorsed wanting to live for penitentiary and his health. The patient denied any access to guns or weapons. Patient denied any paranoia and did not endorse any delusions. Patient does have a significant history of substance abuse and was counseled on abstaining from all substances including alcohol and marijuana. Patient was offered however declined inpatient substance-abuse rehab initially however on day of discharge he was agreeable to call for rehab intake and screening today. Patient elected to do outpatient substance use treatment program through their outpatient provider.. Patient was also counseled on the medications and need for regular compliance and was encouraged to follow-up with their outpatient appointment for mental health and also for primary care. Patient will be given a ride back to [facility], will be referred to penitentiary and also will be allowed to call for rehab today to commence this process. Mental status exam: General Appearance: Patient appears to be has a ortiz, stated age is alert, pleasant, and attempts to be cooperative. Patient is in no acute distress and ng s improved hygiene and grooming Behavior: Patient is calmly seated without any agitated behavior. Attempts to cooperate Speech: Patient's speech is fluent and nonpressured. Mood/Affect: Patient reports their mood is "ok", affect is congruent Suicidality/Homicidality: Patient denies having any suicidal or homicidal ideation intent or plan. Perceptions: Patient denies any auditory or visual hallucinations. Though content/process: There is no evidence of any delusional thought content and thought process is linear and goal-directed. More future oriented Memory and concentration: AOX3, grossly intact for the purposes of this session. Can spell "WORLD" backwards correctly. Judgment and insight: Chronically poor, however has improved with guarded prognosis Impression: Suicidal ideations Depressive disorder unspecified Alcohol use disorder Homelessness Nicotine dependence Plan: -Continue with discharge today as patient has improved and stabilized psychiatrically and is not currently an imminent threat to themself and/or others. Patient will remain at chronically elevated risk for harm to self and/or others due to their impulsivity and chronic mental illness and chronic SI. -Continue medications: Cymbalta 60 mg twice daily for mood/anxiety, Seroquel 200 mg nightly for mood stabilization/sleep/anxiety, lithium 450 mg daily for mood adjunct/suicidal thoughts, melatonin 10 mg nightly for sleep. -Patient was counseled on the need for medication compliance and appropriate follow-up at mental health and also primary care for medical issues. Patient verbalized understanding and agreed. -Social work to help coordinate patients discharge today as patient will be transferred back to [facility], will be referred to penitentiary. Patient will also be encouraged to call for rehab screening today over the phone to commence this process. also to ensure safe home environment that guns/weapons are either removed from the home or locked away. Social work also to arrange for patients follow up appointments for psychiatric care along with follow up with primary care provider. -Patient counseled on abstaining from recreational drugs and marijuana and alcohol. Was informed/educated on the adverse effects on their physical and mental health. Patient verbally agreed and understood. -Patient was instructed to return to the hospital or seek immediate medical care if their psychiatric or medical symptoms do worsen or reoccur. Allergies Allergy/AdvReac Type Severity Reaction Status Date / Time No Known Allergies Allergy Verified 02/14/25 17:11 Laboratory Results WBC 9.7 k/uL (3.8-10.6) 02/15/25 11:12 RBC 5.04 m/uL (4.30-5.90) 02/15/25 11:12 Hgb 15.9 gm/dL (13.0-17.5) 02/15/25 11:12 Hct 49.4 % (39.0-53.0) 02/15/25 11:12 MCV 98.0 fL (80.0-100.0) 02/15/25 11:12 MCH 31.5 pg (25.0-35.0) 02/15/25 11:12 MCHC 32.1 g/dL (31.0-37.0) 02/15/25 11:12 RDW 14.9 % (11.5-15.5) 02/15/25 11:12 Plt Count 200 k/uL (150-450) 02/15/25 11:12 MPV 7.7 02/15/25 11:12 Neutrophils % 74 % 02/15/25 11:12 Lymphocytes % 20 % 02/15/25 11:12 Monocytes % 4 % 02/15/25 11:12 Eosinophils % 1 % 02/15/25 11:12 Basophils % 1 % 02/15/25 11:12 Neutrophils # 7.1 k/uL (1.3-7.7) 02/15/25 11:12 Lymphocytes # 1.9 k/uL (1.0-4.8) 02/15/25 11:12 Monocytes # 0.4 k/uL (0-1.0) 02/15/25 11:12 Eosinophils # 0.1 k/uL (0-0.7) 02/15/25 11:12 Basophils # 0.1 k/uL (0-0.2) 02/15/25 11:12 Macrocytosis Slight 02/15/25 11:12 Sodium 135 mmol/L (137-145) L 02/15/25 11:12 Potassium 3.6 mmol/L (3.5-5.1) 02/15/25 11:12 Chloride 99 mmol/L (98-107) 02/15/25 11:12 Carbon Dioxide 29 mmol/L (22-30) 02/15/25 11:12 Anion Gap 7 mmol/L 02/15/25 11:12 BUN 15 mg/dL (9-20) 02/15/25 11:12 Creatinine 1.13 mg/dL (0.66-1.25) 02/15/25 11:12 Est GFR (CKD-EPI)AfAm 87 (>60 ml/min/1.73 sqM) 02/15/25 11:12 Est GFR (CKD-EPI)NonAf 75 (>60 ml/min/1.73 sqM) 02/15/25 11:12 Glucose 129 mg/dL (74-99) H 02/15/25 11:12 POC Glucose (mg/dL) 113 mg/dL (70-110) H 02/25/25 07:51 POC Glu [place] [facility] [place] 02/25/25 07:[address] Glu mg/dL 111 mg/dL 02/15/25 11:12 Hemoglobin A1c 5.5 % (<=6.0) 02/15/25 11:12 Uric Acid 10.7 mg/dL (3.5-8.5) H 02/15/25 11:44 Calcium 9.8 mg/dL (8.4-10.2) 02/15/25 11:12 Total Bilirubin 0.9 mg/dL (0.2-1.3) 02/15/25 11:12 AST 31 U/L (17-59) 02/15/25 11:12 ALT 28 U/L (4-49) 02/15/25 11:12 Alkaline Phosphatase 90 U/L (38-126) 02/15/25 11:12 Total Protein 6.9 g/dL (6.3-8.2) 02/15/25 11:12 Albumin 4.0 g/dL (3.5-5.0) 02/15/25 11:12 Triglycerides 505.00 mg/dL (0.00-149.00) H 02/15/25 11:33 Cholesterol 181.00 mg/dL (0.00-200.00) 02/15/25 11:33 LDL Cholesterol Direct 81.00 mg/dL (0.00-129.00) 02/15/25 11:33 LDL Cholesterol, Calc mg/dL 02/15/25 11:33 VLDL Cholesterol, Calc 101.00 mg/dL (5.00-40.00) H 02/15/25 11:33 HDL Cholesterol 55.70 mg/dL (40.00-60.00) 02/15/25 11:33 Cholesterol/HDL Ratio 3.25 Ratio 02/15/25 11:33 [place] 0.3 mmol/L 02/25/25 08:27 Vital Signs Temp 98.7 F 02/25/25 08:46 Pulse 102 H 02/25/25 08:46 Resp 16 02/24/25 20:40 BP 84/57 02/25/25 08:46 Pulse Ox 98 02/25/25 08:46 FiO2 Patient Condition at Discharge: Stable Plan - Discharge Summary Discharge Rx Participant: Yes New Discharge Prescriptions: New DULoxetine HCL [Cymbalta] 60 mg PO BID 14 Days #28 cap Folic Acid 1 mg PO DAILY tab [place] Carbonate ER [Lithobid] 450 mg PO DAILY 14 Days #14 tab Melatonin 10 mg PO HS tab Multivitamins, Thera [Multivitamin (formulary)] 1 each PO DAILY tab QUEtiapine [SEROquel] 200 mg PO HS 14 Days #14 tab Ibuprofen [Motrin] 600 mg PO Q6HR PRN tab PRN Reason: Moderate Pain (Scale 4 To 6) Thiamine [Vitamin B-1] 100 mg PO DAILY tab Continue Albuterol Sulfate [Proair Digihaler] Leflunomide [Arava] 20 mg PO DAILY 14 Days #14 tab Losartan [Cozaar] 25 mg PO DAILY 14 Days #14 tab glipiZIDE 10 mg PO DAILY 14 Days #14 tab Atorvastatin [Lipitor] 20 mg PO DAILY 14 Days #14 tab metFORMIN HCL 1,000 mg PO BID 14 Days #28 tab Pantoprazole Sodium [Protonix] 20 tab PO DAILY 14 Days #14 tab Changed Fenofibrate Nanocrystallized [Fenofibrate] 48 mg PO DAILY 14 Days #14 tab Discontinued busPIRone HCl [Buspar] 5 mg PO TID Pregabalin [Lyrica] 75 mg PO TID Discharge Medication List Albuterol Sulfate [Proair Digihaler] 02/14/25 [History] Atorvastatin [Lipitor] 20 mg PO DAILY 14 Days #14 tab 02/25/25 [Rx] DULoxetine HCL [Cymbalta] 60 mg PO BID 14 Days #28 cap 02/25/25 [Rx] Fenofibrate Nanocrystallized [Fenofibrate] 48 mg PO DAILY 14 Days #14 tab 02/25/25 [Rx] Folic Acid 1 mg PO DAILY tab 02/25/25 [Rx] Ibuprofen [Motrin] 600 mg PO Q6HR PRN tab 02/25/25 [Rx] Leflunomide [Arava] 20 mg PO DAILY 14 Days #14 tab 02/25/25 [Rx] [place] Carbonate ER [Lithobid] 450 mg PO DAILY 14 Days #14 tab 02/25/25 [Rx] Losartan [Cozaar] 25 mg PO DAILY 14 Days #14 tab 02/25/25 [Rx] Melatonin 10 mg PO HS tab 02/25/25 [Rx] Multivitamins, Thera [Multivitamin (formulary)] 1 each PO DAILY tab 02/25/25 [Rx] Pantoprazole Sodium [Protonix] 20 tab PO DAILY 14 Days #14 tab 02/25/25 [Rx] QUEtiapine [SEROquel] 200 mg PO HS 14 Days #14 tab 02/25/25 [Rx] Thiamine [Vitamin B-1] 100 mg PO DAILY tab 02/25/25 [Rx] glipiZIDE 10 mg PO DAILY 14 Days #14 tab 02/25/25 [Rx] metFORMIN HCL 1,000 mg PO BID 14 Days #28 tab 02/25/25 [Rx] Follow up Appointment(s)/Referral(s): [facility], [facility] [Other] - 1 Week Patient Instructions/Handouts: Mood Disorders (DC), Depression (DC) Activity/Diet/Wound Care/Special Instructions: [facility] Discharge Info Avoid the use of street drugs and alcohol. Take all medications as prescribed. When you are in need of refills on your medications, please contact your outpatient medical provider and/or outpatient psychiatrist. Please go to your scheduled outpatient appointments for aftercare treatment. If symptoms return or become worse, call the crisis line at or and/or visit the nearest emergency room for assistance. National Suicide and Crisis Lifeline - call or text 988 Discharge Disposition: OTHER INSTITUTION NOT DEFINED
[2025-02-25 12:48] LABS: Glucose,Whole Blood 49 mg/dL (70-110)
[2025-02-25 12:48] LABS: Glucose,Whole Blood 58 mg/dL (70-110)
[2025-02-25 13:04] LABS: Glucose,Whole Blood 61 mg/dL (70-110)
[2025-02-25 13:16] LABS: Glucose,Whole Blood 122 mg/dL (70-110)
== END 2025-02-25 14:45 | disposition home or self-care (01) | DRG 751 ==
LOC: 3MHU 19:27
PROVIDERS: ADMIT Psychiatry & Neurology Psychiatry; ATTEND Psychiatry & Neurology Psychiatry
DX: F32.A Depression, unspecified (principal); G89.29 Other chronic pain; M79.605 Pain in left leg; M79.604 Pain in right leg; E11.9 Type 2 diabetes mellitus without complications; E78.5 Hyperlipidemia, unspecified; F10.10 Alcohol abuse, uncomplicated; F17.210 Nicotine dependence, cigarettes, uncomplicated; F41.9 Anxiety disorder, unspecified; I10 Essential (primary) hypertension; R45.851 Suicidal ideations; Z60.4 Social exclusion and rejection; Z59.00 Homelessness unspecified; Z79.84 Long term (current) use of oral hypoglycemic drugs; Z79.899 Other long term (current) drug therapy; Z91.148 Patient's other noncompliance with medication regimen for other reason; Z71.41 Alcohol abuse counseling and surveillance of alcoholic; Z71.89 Other specified counseling; Z28.21 Immunization not carried out because of patient refusal; Z63.5 Disruption of family by separation and divorce
CPT/HCPCS: 80053; 80061; 80178; 83036; 83721; 84550; 85025